=== PATIENT | male | born 1945 | race Caucasian/White ===

== ENCOUNTER 2022-09-25 07:28 | Day surgery (SDC) | payer MEDICARE, BC ==
[~2022-09-25] VITALS: Ht 185.4 cm; Wt 103.6 kg
[~2022-09-25 07:28] MED LIST: ASPI325T6 PO; ASPIRIN 32325 MG/TAB PO; CELEBREX 200MG200 MG PO; FERROUS SULFAT324 M1 PO; FISH OIL500 MG PO; FOLIC ACID 40400 MCG PO; NAPROSYN500 MG PO; NORCO 325 MG-7.1 TAB PO; VITAMIN C500 MG PO; VITAMIN D1000 IU PO
[2022-09-25 09:30] VITALS: BP 98/59; PULSE 70; TEMP 97.6
--- NOTE | 2022-09-25 09:30 | NUR ---
0930 PATIENT RETURNS TO ROOM 2 VIA CART. PATIENT IS DROWSY BUT ALERTS TO VERBAL STIMULI. PATIENT IS IN ROOM. PATIENT AMBULATES TO RECLINER WITH THE ASSISTANCE OF 2 NURSES. RESPIRATIONS EVEN AND UNLABORED. VITAL SIGNS OBTAINED. PATIENT DOES NOT WANT ANYTHING TO EAT OR DRINK AT THIS TIME. 0940 PATIENT REQUESTED WATER. NO DIFFICULTIES SWALLOWING. 0950 DISCHARGE INSTRUCTIONS REVIEWED WITH PATIENT AND PATIENT . BOTH VERBALIZED UNDERSTANDING. 0955 DISCONTINUED IV FROM RIGHT FOREARM WITH NO DIFFICULTIES. 1000 DOCTOR IN TO SPEAK WITH PATIENT. 1010 PATIENT DISCHARGES FROM UNIT VIA WHEELCHAIR IN STABLE CONDITION. IS DRIVING PATIENT HOME.
[2022-09-25 09:42] VITALS: BP 147/76; PULSE 70; TEMP 97.6
[2022-09-25 09:45] VITALS: BP 110/72; PULSE 62
[2022-09-25 10:00] VITALS: BP 123/73; PULSE 57
== END 2022-09-25 10:10 | disposition home or self-care (01) ==
LOC: SDCO 07:28
DX: Z12.11 Encounter for screening for malignant neoplasm of colon (principal); K64.0 First degree hemorrhoids; K57.30 Diverticulosis of large intestine without perforation or abscess without bleeding; Z87.891 Personal history of nicotine dependence
CPT/HCPCS: J2704